=== PATIENT | male | born 1990 | race Caucasian/White ===

== ENCOUNTER 2024-06-29 08:11 | Outpatient (CLI) | payer OTHER, SELFPAY | END 2024-06-29 08:12 | disposition home or self-care (01) | LOC: NFLDREF 07-04 03:11 | PROVIDERS: PCP Family Medicine; Referring Provider Family Medicine; Visit Provider Family Medicine | DX: Z13.6 Encounter for screening for cardiovascular disorders (principal) | CPT/HCPCS: 80061 ==